=== PATIENT | female | born 1990 | race Caucasian/White ===

== ENCOUNTER → 2019-03-31 | Outpatient (CLI) | payer OTHER, SELFPAY ==
[2018-04-12 14:46] VITALS: BMI 22.4
[2019-03-31 15:59] LABS: Amphetamine Urine VISTA NEGATIVE (<1000 ng/mL); Barbiturate Urine VISTA NEGATIVE (< 200 ng/mL); Benzodiazepine Urine VISTA NEGATIVE (< 200 ng/mL); Cocaine Urine VISTA NEGATIVE (< 300 ng/mL); Ecstacy Urine VISTA NEGATIVE (< 500 ng/mL); Methadone Urine VISTA NEGATIVE (< 300 ng/mL); PCP Urine VISTA NEGATIVE (< 25 ng/mL); THC Urine VISTA NEGATIVE (< 50 ng/mL); Vista UDS pH Range 5
== END | disposition home or self-care (01) ==
PROVIDERS: Visit Provider Family Medicine
DX: Z02.1 Encounter for pre-employment examination (principal)
CPT/HCPCS: 80307

== ENCOUNTER 2019-10-25 17:00 | Emergency (ER) | payer MEDICAID, SELFPAY ==
[2018-04-12 14:46] VITALS: BMI 22.4
[2019-10-25 17:04] VITALS: BP 154/102; PULSE 95; RESP 18; TEMP 36.8; O2SAT 95; BMI 25.0
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
[2019-10-25 17:12] VITALS: O2SAT 95
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
[2019-10-25] MEDS: morphine 8 MG/ML Syringe SC (18:04)
[2019-10-25] MEDS: Ondansetron 4 MG/2 ML Vial IM (18:05)
[2019-10-25 18:39] VITALS: BP 146/100; PULSE 109; RESP 18
== END 2019-10-25 19:13 | disposition home or self-care (01) ==
PROVIDERS: Emergency Provider Emergency Medicine; PCP Family Medicine
DX: S03.2XXA Dislocation of tooth, initial encounter (principal); S09.93XA Unspecified injury of face, initial encounter; M54.5 Low back pain; M25.562 Pain in left knee; F17.200 Nicotine dependence, unspecified, uncomplicated; V03.00XA Pedestrian on foot injured in collision with car, pick-up truck or van in nontraffic accident, initial encounter; Y93.89 Activity, other specified; Y92.89 Other specified places as the place of occurrence of the external cause; Y99.8 Other external cause status
CPT/HCPCS: 72070; 72100; 73564; 96372; 99284; J2405

== ENCOUNTER 2019-12-05 20:50 | Inpatient (IN) | payer MEDICAID, SELFPAY ==
[2019-12-05 20:51] VITALS: BP 171/107; PULSE 111; RESP 16; TEMP 36.4; O2SAT 100; BMI 22.3
[2019-12-05 22:40] VITALS: RESP 16
--- NOTE | 2019-12-05 22:42 | ED.DCSUM_ITS ---
History of Present Illness Chief Complaint: Substance Abuse Informant: Patient Narrative: Patient seeking detox from fentanyl. She snorts it, and does not use it any other way. No IV drug use. She occasionally uses methamphetamine, but fentanyl uses daily and she gets withdrawal when she stops using it. Last use was a couple hours ago so she is feeling fine now, but when she gets withdrawal she gets backache, myalgias, sweats, and anxiety/shaking, nausea. Denies any suicidality. - Past Medical History (1) Depression with anxiety Status: Chronic (2) History of anemia Status: Chronic Past Medical History - Allergies and Home Meds Allergies/Adverse Reactions: Allergies No Known Allergies Allergy (Verified 12/05/19 20:53) Primary Care Physician: Jese Beebe DO [Primary Care Provider] - Smoking Status: Current every day smoker Drugs: - - Fentanyl Review of Systems General: Denies: Chills, Fever, Sweats Eyes: Denies: Visual changes - bilaterally, Diplopia ENT: Reports: - - No loss of taste or smell. Denies: Rhinorrhea, Sore throat Cardiovascular: Denies: Chest pain, Palpitations Respiratory: Denies: Dyspnea, Cough, Dyspnea on exertion Gastrointestinal: Denies: Abdominal pain, Nausea, Vomiting, Diarrhea, Melena, Hematochezia Genitourinary: Denies: Dysuria, Hematuria, Frequency Musculoskeletal: Denies: Myalgias, Back pain, Swelling, Extremity Pain Skin: Denies: Rash, Wounds Neurological: Denies: Headache, Weakness, Numbness Physical Exam Vital Signs/Narrative: Vital Signs Temp Pulse Resp BP Pulse Ox 12/05/19 22:40 16 12/05/19 20:51 97.6 F L 111 H 16 171/107 H 100 General: Well nourished, Well developed, No Acute Distress Head: Normocephalic, Atraumatic Eyes: Perrl, EOMI ENT: Moist mucous membranes, No rhinorrhea Neck: Supple, Nontender Cardiovascular: Regular rate, Regular rhythm, No murmurs, Tachycardia Respiratory: No distress, CTA bilaterally, Chest nontender Abdomen: Soft, Nontender, Nondistended, Normal bowel sounds Back: Nontender, Normal Inspection Extremities: Nontender, No edema. Negative for: Calf Tenderness Skin: Normal color, No rash, No Trauma Neurological: Alert, Oriented x3, Cranial nerves II-XII grossly intact, Normal Strength, Normal Sensation Psychological: Normal affect, Normal Mood Diagnostic/Tx/Re-eval Laboratory Results 12/05/19 12/05/19 12/05/19 22:30 22:30 22:30 WBC 9.1 RBC 4.41 Hgb 13.3 Hct 40.1 MCV 90.9 MCH 30.2 MCHC 33.2 RDW Std Deviation 39.1 RDW Coeff of Billie 11.6 Plt Count 278 MPV 9.7 Immature Gran % (Auto) 0.200 Neut % (Auto) 63.1 Lymph % (Auto) 26.7 [place] % (Auto) 9.0 Eos % (Auto) 0.6 Baso % (Auto) 0.4 Absolute Neuts (auto) 5.7 Absolute Lymphs (auto) 2.42 Nucleated RBC % 0 Sodium 137 Potassium 3.6 Chloride 103 Carbon Dioxide 31.0 Anion Gap 3 L BUN 14 Creatinine 0.95 Estim Creat Clear Calc 74.77 Est GFR (MDRD) Af Amer 88 Est GFR (MDRD) Non-Af 73 BUN/Creatinine Ratio 14.7 Glucose 124 H Calcium 9.5 Total Bilirubin 0.20 AST 16 ALT 22 Alkaline Phosphatase 53 Total Protein 7.5 Albumin 3.9 Globulin 3.6 Albumin/Globulin Ratio 1.1 Serum , Qual NEGATIVE Urine Opiates Screen Urine Methadone Screen Ur Barbiturates Screen Ur Phencyclidine Scrn Ur Amphetamines Screen U Methamphetamin-MDMA U Benzodiazepines Scrn Urine Cocaine Screen U Cannabinoids Screen Ur Drug Screen Comment Ethyl Alcohol 12/05/19 12/05/19 23:05 Unknown WBC RBC Hgb Hct MCV MCH MCHC RDW Std Deviation RDW Coeff of Billie Plt Count MPV Immature Gran % (Auto) Neut % (Auto) Lymph % (Auto) [place] % (Auto) Eos % (Auto) Baso % (Auto) Absolute Neuts (auto) Absolute Lymphs (auto) Nucleated RBC % Sodium Potassium Chloride Carbon Dioxide Anion Gap BUN Creatinine Estim Creat Clear Calc Est GFR (MDRD) Af Amer Est GFR (MDRD) Non-Af BUN/Creatinine Ratio Glucose Calcium Total Bilirubin AST ALT Alkaline Phosphatase Total Protein Albumin Globulin Albumin/Globulin Ratio Serum , Qual Urine Opiates Screen NEGATIVE Urine Methadone Screen NEGATIVE Ur Barbiturates Screen NEGATIVE Ur Phencyclidine Scrn NEGATIVE Ur Amphetamines Screen POSITIVE H U Methamphetamin-MDMA POSITIVE H U Benzodiazepines Scrn NEGATIVE Urine Cocaine Screen NEGATIVE U Cannabinoids Screen NEGATIVE Ur Drug Screen Comment Ethyl Alcohol 3.0 - Medical Decision Making Medically cleared for admission for detox. Patient is stable. ED Disposition - Plan for ED Patient: Disposition: Acute Care Hospital [facility] Diagnosis: Opioid dependence Referrals: Jese Beebe DO [Primary Care Provider] -
[2019-12-05 22:58] LABS: Absolute Lymphocyte Count 2.42 X10^3/uL (0.83-4.51); Absolute Neutrophil Count 5.7 X10^3/uL (2.0-7.7); Basophil# 0.04 X10^3/uL; Basophil% 0.4 % (0-1); Eosinophil# 0.05 X10^3/uL; Eosinophils% 0.6 % (0-5); Hematocrit 40.1 % (37-47); Hemoglobin 13.3 g/dL (12.0-15.0); Lymphocyte # 2.42 X10^3/ul (4.0); Lymphocyte % 26.7 % (19-41); Mean Corp Hgb Conc 33.2 g/dL (32-36); Mean Corpuscular Hgb 30.2 pg (27.0-32.0); Mean Corpuscular Volume 90.9 fL (81-99); Mean Platelet Vol. 9.7 fl (6.2-12.0); Monocyte# 0.82 X10^3/uL; NRBC Flagged by Analyzer 0 % (0-5); Neutrophil # 5.72 X10^3/uL (2.7-7.7); Neutrophil % 63.1 % (47-70); Platelet Count 278 K/mm3 (150-450); RBC Distribution Width CV 11.6 % (11.6-14.6); RBC Distribution Width SD 39.1 fl (35.1-43.9); Red Blood Count 4.41 M/mm3 (4.2-5.4); White Blood Count 9.1 K/mm3 (4.4-11.0)
[2019-12-05 23:13] LABS: Internal QC Validated? YES +Cl - CLEAR BKGD; Pregnancy, Serum, hCG Quali. NEGATIVE Negative
[2019-12-05 23:17] LABS: ALB/GLOB Ratio 1.1 RATIO (0.9-2.4); AST(SGOT) 16 U/L (15-37); Alanine Aminotransfer ALT/SGPT 22 U/L (13-56); Albumin, Serum 3.9 g/dL (3.2-5.0); Alkaline Phosphatase 53 U/L (45-117); Anion Gap 3 (5-15); BUN 14 mg/dL (7-18); BUN/Creat Ratio 14.7 RATIO (10-20); Calcium,Total 9.5 mg/dL (8.5-10.1); Chloride 103 mmol/L (98-107); Creatinine, Serum 0.95 mg/dL (0.55-1.02); EST Glomerular Filtration Rate 73 mL/min (>60); Est Glom Filt Rate - Afr Amer 88 mL/min (>60); Estimated Creatinine Clearance 74.77 ml/min; Globulin 3.6 g/dL (2.2-4.2); Glucose 124 mg/dL (74-106); Potassium 3.6 mmol/L (3.5-5.1); Protein, Total 7.5 g/dL (6.4-8.2); Sodium Level 137 mmol/L (136-145)
[2019-12-05 23:42] LABS: Amphetamine Urine VISTA POSITIVE (<1000 ng/mL); Barbiturate Urine VISTA NEGATIVE (< 200 ng/mL); Benzodiazepine Urine VISTA NEGATIVE (< 200 ng/mL); Cocaine Urine VISTA NEGATIVE (< 300 ng/mL); Ecstacy Urine VISTA POSITIVE (< 500 ng/mL); Methadone Urine VISTA NEGATIVE (< 300 ng/mL); PCP Urine VISTA NEGATIVE (< 25 ng/mL); THC Urine VISTA NEGATIVE (< 50 ng/mL); Vista UDS pH Range 5
[2019-12-06] VITALS (10 sets, daily range): BP systolic 115–147; BP diastolic 51–99; PULSE 66–90; RESP 16–18; TEMP 36.4–37.1; O2SAT 95–100; BMI 24.1; BMI 24.2
--- NOTE | 2019-12-06 00:27 | HP.PCM_ITS ---
Problem List (1) Acute opioid withdrawal Status: Acute (2) Opioid dependence Status: Chronic (3) Depression with anxiety Status: Chronic History of Present Illness Date of Admission: 12/06/19 Chief Complaint: Acute opiate withdrawal requesting medical stabilization. The patient is a 29 year old F with no significant past medical history apart from depression presented to the emergency room requesting admission for acute opioid withdrawal for detoxification. Patient states that she has been snorting fentanyl daily over the last 6 months and also uses intermittent amphetamines. Her last use of fentanyl was 8 hours ago. Before the 6 months, she has been using fentanyl occasionally but not every day. She never went into detox program in the past. Her main complaints at this time as body aches and pains, back pain, mild pain, associated with some restlessness as well as abdominal cramps. She reported abdominal cramps no pain, no diarrhea associated. She d enies fever or chills. In the emergency department, she was afebrile, slight tachycardia, blood pressure was elevated and pulse ox was 100% on room air. Routine blood work was unremarkable. LFT was unremarkable. Serum was negative. Urine drug screen was positive for amphetamines admitted for the means. Blood alcohol level was 3. She is being admitted for acute opioid withdrawal for medical stabilization. Past Medical History Past Medical History (Chronic Problems): Chronic Problems (Last Updated 12/06/19 @ 00:[address] Hoa Braga MD) Opioid dependence (Chronic) Depression with anxiety (Chronic) History of anemia (Chronic) Medical History: Medical History (Last Updated 12/06/19 @ 00:[address] 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 Hoa Braga MD) Grandfather Heart disease Myocardial infarction, Onset Age: 45 Father Drug abuse and dependence Mother Drug abuse and dependence Review of Systems Constitutional: Reports: Malaise. Denies: Anorexia, Chills, Fever, Weakness Eyes: Denies: Blurred vision, Double vision, Drainage, Redness HEENT: Denies: Difficulty Hearing, Ear Pain, Eye Pain, Nasal Congestion, Sore Throat Cardiovascular: Denies: Chest Pain, Chest Pressure, Edema, Heaviness, Palpitations, Syncope Respiratory: Denies: Cough, Hemoptysis, Shortness of Breath, Sputum production, Wheezing Gastrointestinal: Denies: Abdominal Pain, Constipation, Diarrhea, Nausea, Vomiting Genitourinary: Denies: Dysuria, Frequency, Hematuria Musculoskeletal: Reports: Back Pain. Denies: Arm Pain, Foot Pain Skin: Denies: Dryness, Rash Neurological: Denies: Balance problems, Double vision, Change in Speech, Slurred speech, Confusion, Focal weakness, Incoordination, Numbness Psychiatric: Reports: Depression. Denies: Anxiety Endocrine: Denies: Change in Body Habitus, Polydipsia, Polyuria VTE Information - Inpt Only VTE Present on Admission: No VTE Mechan Device Prophylaxis: None VTE Pharm Prophylaxis ordered?: No - Physical Exam Vitals/I&O's: Vital Signs Temp Pulse Resp BP Pulse Ox 97.6 F L 111 H 16 171/107 H 100 12/05/19 20:51 12/05/19 20:51 12/05/19 22:40 12/05/19 20:51 12/05/19 20:51 Oxygen Delivery Method Room Air Weight: 130 lb Body Mass Index (BMI) 22.3 General: Alert, Oriented x3, Cooperative, No apparent distress HEENT: Atraumatic, PERRLA, EOMI, Normocephalic Oral: Moist Mucosa, No Gingival or Mucosal Lesions/ Ulcerations Neck: Supple, No JVD, Negative Carotid Bruits, Trachea Midline, Thyroid Normal Size and Texture Lungs: Clear to auscultation, Normal air movement, No rhonchi, No wheeze, No rales Cardiovascular: Regular rate, Regular Rhythm, Normal S1, Normal S2, PMI Normal Abdomen: Bowel Sounds Present, Soft, Non Tender, Non-Distended, No Hepato- splenomegaly Extremities: No clubbing, No cyanosis, No edema Skin: No rashes, No breakdown Lymphatic: No Cervical, Supraclavicular, or Inguinal Adenopathy Neurological: Cranial nerves II-XII grossly intact, Motor Exam 5/5 strength throughout Psych/Mental Status: Normal Affect, Appropriate, Alert and oriented to time, place, person, mood and affect Laboratory Results 12/05/19 22:30: WBC 9.1, RBC 4.41, Hgb 13.3, Hct 40.1, MCV 90.9, MCH 30.2, MCHC 33.2, RDW Std Deviation 39.1, RDW Coeff of Billie 11.6, Plt Count 278, MPV 9.7, Immature Gran % (Auto) 0.200, Neut % (Auto) 63.1, Lymph % (Auto) 26.7, [place] % (Auto) 9.0, Eos % (Auto) 0.6, Baso % (Auto) 0.4, Absolute Neuts (auto) 5.7, Absolute Lymphs (auto) 2.42, Nucleated RBC % 0 12/05/19 22:30: Sodium 137, Potassium 3.6, Chloride 103, Carbon Dioxide 31.0, Anion Gap 3 L, BUN 14, Creatinine 0.95, Estim Creat Clear Calc 74.77, Est GFR (MDRD) Af Amer 88, Est GFR (MDRD) Non-Af 73, BUN/Creatinine Ratio 14.7, Glucose 124 H, Calcium 9.5, Total Bilirubin 0.20, AST 16, ALT 22, Alkaline Phosphatase 53, Total Protein 7.5, Albumin 3.9, Globulin 3.6, Albumin/Globulin Ratio 1.1 12/05/19 22:30: Serum , Qual NEGATIVE 12/05/19 23:05: Ethyl Alcohol 3.0 12/05/19 : Urine Opiates Screen NEGATIVE, Urine Methadone Screen NEGATIVE, Ur Barbiturates Screen NEGATIVE, Ur Phencyclidine Scrn NEGATIVE, Ur Amphetamines Screen POSITIVE H, U Methamphetamin-MDMA POSITIVE H, U Benzodiazepines Scrn NEGATIVE, Urine Cocaine Screen NEGATIVE, U Cannabinoids Screen NEGATIVE, Ur Drug Screen Comment Assessment/Plan All Active Problems (Last Updated 12/06/19 @ 00:[address] Hoa Braga MD) Acute opioid withdrawal (Acute) This is a 49 years old female patient presented to the emergency room requesting admission for acute opioid withdrawal for medical stabilization. #1 acute opiate withdrawal: Patient has been using snorting fentanyl daily over the last 6 months, she uses amphetamines occasionally. Last use was 8 hours ago. Routine blood work reviewed as well as LFT. Urine drug screen was positive for amphetamines. [facility], initiate opioid withdrawal stabilization protocol with tapering Subutex, as needed Catapres, Bentyl, Neurontin, Vistaril, Imodium, methocarbamol, Zofran and trazodone, consult [facility] program. #2 depression/anxiety: Stable, currently not on medications. #3 tobacco abuse: NicoDerm patch. #4 DVT prophylaxis: Low risk patient, no prophylaxis indicated. This note was generated with Net[employer] dictation software. It may contain incorrect words, spelling, and punctuation that were not noted in checking the note before signing. Inpatient E&M: 59512 Init Hosp L2
[2019-12-06] MEDS: Buprenorphine HCl 2 MG TAB.SUBL SL ×3 (03:32→18:09)
[2019-12-06] MEDS: hydrOXYzine PAM 25 MG Capsule 50 MG PO ×2 (03:32→12:18)
[2019-12-06] MEDS: Methocarbamol 750 MG Tablet 1500 MG PO ×3 (03:33→18:08)
[2019-12-06] MEDS: Dicyclomine 10 MG Capsule 20 MG PO ×3 (03:33→18:08)
[2019-12-06] MEDS: cloNIDine HCl 0.1 MG Tablet PO ×3 (03:34→22:17)
--- NOTE | 2019-12-06 07:26 | PCM.PN.HOSP ---
Patient Problems: Active and Suspected Problems (Last Updated 12/06/19 @ 00:[address] Hoa Braga MD) Acute opioid withdrawal (Acute) Vitals/I&O's: Vital Signs Temp Pulse Resp BP Pulse Ox 97.5 F L 81 18 130/81 H 100 12/06/19 03:38 12/06/19 03:38 12/06/19 03:38 12/06/19 03:38 12/06/19 03:38 Oxygen Delivery Method Room Air Weight: 140 lb 14.006 oz Body Mass Index (BMI) 24.1 Laboratory Results 12/05/19 22:30: WBC 9.1, RBC 4.41, Hgb 13.3, Hct 40.1, MCV 90.9, MCH 30.2, MCHC 33.2, RDW Std Deviation 39.1, RDW Coeff of Billie 11.6, Plt Count 278, MPV 9.7, Immature Gran % (Auto) 0.200, Neut % (Auto) 63.1, Lymph % (Auto) 26.7, [place] % (Auto) 9.0, Eos % (Auto) 0.6, Baso % (Auto) 0.4, Absolute Neuts (auto) 5.7, Absolute Lymphs (auto) 2.42, Nucleated RBC % 0 12/05/19 22:30: Sodium 137, Potassium 3.6, Chloride 103, Carbon Dioxide 31.0, Anion Gap 3 L, BUN 14, Creatinine 0.95, Estim Creat Clear Calc 74.77, Est GFR (MDRD) Af Amer 88, Est GFR (MDRD) Non-Af 73, BUN/Creatinine Ratio 14.7, Glucose 124 H, Calcium 9.5, Total Bilirubin 0.20, AST 16, ALT 22, Alkaline Phosphatase 53, Total Protein 7.5, Albumin 3.9, Globulin 3.6, Albumin/Globulin Ratio 1.1 12/05/19 22:30: Serum , Qual NEGATIVE 12/05/19 23:05: Ethyl Alcohol 3.0 12/05/19 : Urine Opiates Screen NEGATIVE, Urine Methadone Screen NEGATIVE, Ur Barbiturates Screen NEGATIVE, Ur Phencyclidine Scrn NEGATIVE, Ur Amphetamines Screen POSITIVE H, U Methamphetamin-MDMA POSITIVE H, U Benzodiazepines Scrn NEGATIVE, Urine Cocaine Screen NEGATIVE, U Cannabinoids Screen NEGATIVE, Ur Drug Screen Comment Current Medications Acetaminophen (Acetaminophen 500 Mg Tablet) 500 mg PO Q4H PRN PRN PRN Reason: Temp > 100.4 F Buprenorphine HCl (Buprenorphine Hcl 2 Mg Tab.Subl) 4 mg SL Q8H CAMMY; Taper Stop: 12/09/19 03:14 Last Admin: 12/06/19 03:32 Dose: 4 mg Documented by: Clonidine (Clonidine Hcl 0.1 Mg Tablet) 0.1 mg PO Q8H PRN PRN PRN Reason: RESTLESSNESS Last Admin: 12/06/19 03:34 Dose: 0.1 mg Documented by: Dicyclomine HCl (Dicyclomine 10 Mg Capsule) 20 mg PO Q6H PRN PRN PRN Reason: Abdominal Discomfort Last Admin: 12/06/19 03:33 Dose: 20 mg Documented by: Gabapentin (Gabapentin 300 Mg Capsule) 300 mg PO Q8H PRN PRN PRN Reason: moderate to severe anxiety Hydroxyzine Pamoate (Hydroxyzine Zoë 25 Mg Capsule) 50 mg PO Q6H PRN PRN PRN Reason: mild anxiety Last Admin: 12/06/19 03:32 Dose: 50 mg Documented by: Loperamide HCl (Loperamide 2 Mg Capsule) 2 mg PO Q4H PRN PRN PRN Reason: LOOSE STOOLS Methocarbamol (Methocarbamol 750 Mg Tablet) 1,500 mg PO Q6H PRN PRN PRN Reason: MUSCLE SPASM Last Admin: 12/06/19 03:33 Dose: 1,500 mg Documented by: Nicotine (Nicotine 21 Mg Patch) 21 mg TRANSDERM. DAILY CAMMY Last Admin: 12/06/19 01:42 Dose: 21 mg Documented by: Nutritional Formula (Lactose Free) (Ensure Enlive 120 Ml Liquid) 120 ml PO 4X/DAY CAMMY Ondansetron HCl (Ondansetron 8 Mg Tablet) 8 mg PO Q8H PRN PRN PRN Reason: NAUSEA Sodium Chloride (0.9% Saline Lock 10 Ml Syringe) 10 - 40 ml IV UD PRN PRN Reason: SALINE FLUSH Trazodone HCl (Trazodone 100 Mg Tablet) 100 mg PO QHS PRN PRN PRN Reason: INSOMNIA STROKE Vital Signs/Narrative: Vital Signs Temp Pulse Resp BP Pulse Ox 12/06/19 03:38 97.5 F L 81 18 130/81 H 100 Medical Necessity - Tobacco Use Smoking Status: Current every day smoker Tobacco Use: Cigarettes Assessment/Plan All Active Problems (Last Updated 12/06/19 @ 00:[address] Hoa Braga MD) Acute opioid withdrawal (Acute) This is a 49 years old female patient presented to the emergency room requesting admission for acute opioid withdrawal for medical stabilization. #1 acute opiate withdrawal: Patient has been using snorting fentanyl daily over the last 6 months, she uses amphetamines occasionally. She usually has IV fentanyl occasionally. Denies history of HIV or hepatitis C. Last use was 8 hours ago. Liver chemistry within normal limit. Serum negative. U tox positive of amphetamine methamphetamine. Continue opioid withdrawal medication protocol with Subutex with as needed supportive medications. Consult [facility] program for drug rehab. #2 depression/anxiety: Stable, currently not on medications. #3 tobacco abuse: NicoDerm patch. #4 DVT prophylaxis: Low risk patient, no prophylaxis indicated. Laboratory Results 12/05/19 22:30: WBC 9.1, RBC 4.41, Hgb 13.3, Hct 40.1, MCV 90.9, MCH 30.2, MCHC 33.2, RDW Std Deviation 39.1, RDW Coeff of Billie 11.6, Plt Count 278, MPV 9.7, Immature Gran % (Auto) 0.200, Neut % (Auto) 63.1, Lymph % (Auto) 26.7, [place] % (Auto) 9.0, Eos % (Auto) 0.6, Baso % (Auto) 0.4, Absolute Neuts (auto) 5.7, Absolute Lymphs (auto) 2.42, Nucleated RBC % 0 12/05/19 22:30: Sodium 137, Potassium 3.6, Chloride 103, Carbon Dioxide 31.0, Anion Gap 3 L, BUN 14, Creatinine 0.95, Estim Creat Clear Calc 74.77, Est GFR (MDRD) Af Amer 88, Est GFR (MDRD) Non-Af 73, BUN/Creatinine Ratio 14.7, Glucose 124 H, Calcium 9.5, Total Bilirubin 0.20, AST 16, ALT 22, Alkaline Phosphatase 53, Total Protein 7.5, Albumin 3.9, Globulin 3.6, Albumin/Globulin Ratio 1.1 12/05/19 22:30: Serum , Qual NEGATIVE 12/05/19 23:05: Ethyl Alcohol 3.0 12/05/19 : Urine Opiates Screen NEGATIVE, Urine Methadone Screen NEGATIVE, Ur Barbiturates Screen NEGATIVE, Ur Phencyclidine Scrn NEGATIVE, Ur Amphetamines Screen POSITIVE H, U Methamphetamin-MDMA POSITIVE H, U Benzodiazepines Scrn NEGATIVE, Urine Cocaine Screen NEGATIVE, U Cannabinoids Screen NEGATIVE, Ur Drug Screen Comment Inpatient E&M: 00777 Subs Hosp L2
[2019-12-06] MEDS: Gabapentin 300 MG Capsule PO ×2 (09:13→18:08)
[2019-12-06] MEDS: Acetaminophen 500 MG Tablet PO (09:16)
--- NOTE | 2019-12-06 13:22 | CASEMGMT ---
RODOLFO called the pt navigator number at [facility], spoke w/Rola. SW notified her of pt being here, she will come see her here tomorrow. truck jumper made aware. MICKEY Bell
[2019-12-07 03:36] VITALS: BP 94/54; PULSE 60; RESP 18; TEMP 36.6; O2SAT 97
[2019-12-07] MEDS: Buprenorphine HCl 2 MG TAB.SUBL SL ×3 (03:40→18:28)
[2019-12-07 09:52] VITALS: BP 108/62; PULSE 61; RESP 16; TEMP 36.3; O2SAT 98
--- NOTE | 2019-12-07 13:50 | PCM.PN.HOSP ---
Patient Problems: Active and Suspected Problems (Last Updated 12/06/19 @ 00:[address] Hoa Braga MD) Acute opioid withdrawal (Acute) Reason for Visit: Follow-up for acute opioid withdrawal symptoms Objective: Patient is more awake alert. Denies any obvious opioid withdrawal symptoms. Physical exam General: Alert, Oriented x3, Cooperative HEENT: Atraumatic, PERRLA, EOMI, Normocephalic Oral: No Gingival or Mucosal Lesions/ Ulcerations Neck: Supple, No JVD, Negative Carotid Bruits Lungs: Air entry equal in bilateral lung bases. No crepitation/rhonchi Cardiovascular: Regular rate, Regular Rhythm, Normal S1, Normal S2, No murmurs Abdomen: Bowel Sounds Present, Soft, Non Tender, Non-Distended : No renal angle tenderness. No suprapubic tenderness. Extremities: No edema, Capillary Refill Less than 3 Seconds Skin: No rashes, No breakdown Musculoskeletal: No Tenderness to Palpation of Joints or Extremities Neurological: Cranial nerves II-XII grossly intact, Deep Tendon Reflexes 2+/4 and Symmetrical, Neuro grossly intact Psych/Mental Status: Normal Affect, Appropriate. Vitals/I&O's: Vital Signs Temp Pulse Resp BP Pulse Ox 97.4 F L 61 16 108/62 98 12/07/19 09:52 12/07/19 09:52 12/07/19 09:52 12/07/19 09:52 12/07/19 09:52 Oxygen Delivery Method Room Air Weight: 140 lb 14.006 oz Body Mass Index (BMI) 24.1 Intake and Output for Last 24 Hours 12/05/19 12/06/19 12/07/19 23:59 23:59 23:59 Intake Total 600 / 600 300 / 300 Balance 600 / 600 300 / 300 Current Medications Acetaminophen (Acetaminophen 500 Mg Tablet) 500 mg PO Q4H PRN PRN PRN Reason: Pain Score 1-10, or elevated temp of 100.4 or abov Last Admin: 12/06/19 09:16 Dose: 500 mg Documented by: Buprenorphine HCl (Buprenorphine Hcl 2 Mg Tab.Subl) 2 mg SL Q8H CAMMY; Taper Stop: 12/09/19 03:14 Last Admin: 12/07/19 10:56 Dose: 2 mg Documented by: Clonidine (Clonidine Hcl 0.1 Mg Tablet) 0.1 mg PO Q8H PRN PRN PRN Reason: RESTLESSNESS Last Admin: 12/06/19 22:17 Dose: 0.1 mg Documented by: Dicyclomine HCl (Dicyclomine 10 Mg Capsule) 20 mg PO Q6H PRN PRN PRN Reason: Abdominal Discomfort Last Admin: 12/06/19 18:08 Dose: 20 mg Documented by: Gabapentin (Gabapentin 300 Mg Capsule) 300 mg PO Q8H PRN PRN PRN Reason: moderate to severe anxiety Last Admin: 12/06/19 18:08 Dose: 300 mg Documented by: Hydroxyzine Pamoate (Hydroxyzine Zoë 25 Mg Capsule) 50 mg PO Q6H PRN PRN PRN Reason: mild anxiety Last Admin: 12/06/19 12:18 Dose: 50 mg Documented by: Loperamide HCl (Loperamide 2 Mg Capsule) 2 mg PO Q4H PRN PRN PRN Reason: LOOSE STOOLS Methocarbamol (Methocarbamol 750 Mg Tablet) 1,500 mg PO Q6H PRN PRN PRN Reason: MUSCLE SPASM Last Admin: 12/06/19 18:08 Dose: 1,500 mg Documented by: Nicotine (Nicotine 21 Mg Patch) 21 mg TRANSDERM. DAILY CAMMY Last Admin: 12/07/19 09:47 Dose: 21 mg Documented by: Ondansetron HCl (Ondansetron 8 Mg Tablet) 8 mg PO Q8H PRN PRN PRN Reason: NAUSEA Sodium Chloride (0.9% Saline Lock 10 Ml Syringe) 10 - 40 ml IV UD PRN PRN Reason: SALINE FLUSH Trazodone HCl (Trazodone 100 Mg Tablet) 100 mg PO QHS PRN PRN PRN Reason: INSOMNIA STROKE Vital Signs/Narrative: Vital Signs Temp Pulse Resp BP Pulse Ox 12/07/19 09:52 97.4 F L 61 16 108/62 98 Medical Necessity - Tobacco Use Smoking Status: Current every day smoker Tobacco Use: Cigarettes Assessment/Plan All Active Problems (Last Updated 12/06/19 @ 00:[address] Hoa Braga MD) Acute opioid withdrawal (Acute) This is a 49 years old female patient presented to the emergency room requesting admission for acute opioid withdrawal for medical stabilization. #1 acute opiate withdrawal: Patient has been using snorting fentanyl daily over the last 6 months, she uses amphetamines occasionally. She usually has IV fentanyl occasionally. Denies history of HIV or hepatitis C. Last use was 8 hours ago. Liver chemistry within normal limit. Serum negative. U tox positive of amphetamine methamphetamine. Continue opioid withdrawal medication protocol with Subutex with as needed supportive medications. Consult [facility] program for drug rehab. 12/06: Opioid withdrawal symptoms are controlled. Continue the treatment as mentioned above #2 depression/anxiety: Stable, currently not on medications. #3 tobacco abuse: NicoDerm patch. #4 DVT prophylaxis: Low risk patient, no prophylaxis indicated. Laboratory Results 12/05/19 22:30: WBC 9.1, RBC 4.41, Hgb 13.3, Hct 40.1, MCV 90.9, MCH 30.2, MCHC 33.2, RDW Std Deviation 39.1, RDW Coeff of Billie 11.6, Plt Count 278, MPV 9.7, Immature Gran % (Auto) 0.200, Neut % (Auto) 63.1, Lymph % (Auto) 26.7, [place] % (Auto) 9.0, Eos % (Auto) 0.6, Baso % (Auto) 0.4, Absolute Neuts (auto) 5.7, Absolute Lymphs (auto) 2.42, Nucleated RBC % 0 12/05/19 22:30: Sodium 137, Potassium 3.6, Chloride 103, Carbon Dioxide 31.0, Anion Gap 3 L, BUN 14, Creatinine 0.95, Estim Creat Clear Calc 74.77, Est GFR (MDRD) Af Amer 88, Est GFR (MDRD) Non-Af 73, BUN/Creatinine Ratio 14.7, Glucose 124 H, Calcium 9.5, Total Bilirubin 0.20, AST 16, ALT 22, Alkaline Phosphatase 53, Total Protein 7.5, Albumin 3.9, Globulin 3.6, Albumin/Globulin Ratio 1.1 12/05/19 22:30: Serum , Qual NEGATIVE 12/05/19 23:05: Ethyl Alcohol 3.0 12/05/19 : Urine Opiates Screen NEGATIVE, Urine Methadone Screen NEGATIVE, Ur Barbiturates Screen NEGATIVE, Ur Phencyclidine Scrn NEGATIVE, Ur Amphetamines Screen POSITIVE H, U Methamphetamin-MDMA POSITIVE H, U Benzodiazepines Scrn NEGATIVE, Urine Cocaine Screen NEGATIVE, U Cannabinoids Screen NEGATIVE, Ur Drug Screen Comment Inpatient E&M: 67053 Subs Hosp L2
[2019-12-07 16:24] VITALS: BP 113/49; PULSE 60; RESP 14; TEMP 36.8; O2SAT 100
[2019-12-07] MEDS: cloNIDine HCl 0.1 MG Tablet PO (16:28)
[2019-12-07 22:53] VITALS: BP 106/74; PULSE 88; RESP 18; TEMP 36.7; O2SAT 96
[2019-12-07] MEDS: Acetaminophen 500 MG Tablet PO (23:02)
[2019-12-07] MEDS: Methocarbamol 750 MG Tablet 1500 MG PO (23:02)
[2019-12-08] MEDS: Buprenorphine HCl 2 MG TAB.SUBL SL ×2 (04:36→15:44)
[2019-12-08 04:37] VITALS: BP 97/35; PULSE 50; RESP 18; TEMP 36.7; O2SAT 99
[2019-12-08 06:34] VITALS: BP 103/59; PULSE 48
--- NOTE | 2019-12-08 08:59 | PCM.PN.HOSP ---
Patient Problems: Active and Suspected Problems (Last Updated 12/06/19 @ 00:[address] Hoa Braga MD) Acute opioid withdrawal (Acute) Reason for Visit: opiate withdrawal Subjective: anxious about being discharged the same time her boyfriend is as they came at the same time. Vitals/I&O's: Vital Signs Temp Pulse Resp BP Pulse Ox 36.7 C 48 L 18 103/59 L 99 12/08/19 04:37 12/08/19 06:34 12/08/19 04:37 12/08/19 06:34 12/08/19 04:37 Oxygen Delivery Method Room Air Weight: 63.9 kg Body Mass Index (BMI) 24.1 Intake and Output for Last 24 Hours 12/06/19 12/07/19 12/08/19 23:59 23:59 23:59 Intake Total 600 / 600 2000 / 2000 300 / 300 Balance 600 / 600 2000 / 2000 300 / 300 General: Alert, No apparent distress HEENT: Atraumatic, Normocephalic Oral: Moist Mucosa, No Gingival or Mucosal Lesions/ Ulcerations Neck: No Nodes, Thyroid Normal Size and Texture Lungs: Clear to auscultation, Normal air movement, No rhonchi, No wheeze Cardiovascular: Regular rate, Regular Rhythm, Normal S1, Normal S2, No murmurs Abdomen: Bowel Sounds Present, Soft, Non Tender, Non-Distended Psych/Mental Status: Normal Affect, Appropriate Current Medications Acetaminophen (Acetaminophen 500 Mg Tablet) 500 mg PO Q4H PRN PRN PRN Reason: Pain Score 1-10, or elevated temp of 100.4 or abov Last Admin: 12/07/19 23:02 Dose: 500 mg Documented by: Buprenorphine HCl (Buprenorphine Hcl 2 Mg Tab.Subl) 2 mg SL Q12H CAMMY; Taper Stop: 12/09/19 03:14 Last Admin: 12/08/19 04:36 Dose: 2 mg Documented by: Clonidine (Clonidine Hcl 0.1 Mg Tablet) 0.1 mg PO Q8H PRN PRN PRN Reason: RESTLESSNESS Last Admin: 12/07/19 16:28 Dose: 0.1 mg Documented by: Dicyclomine HCl (Dicyclomine 10 Mg Capsule) 20 mg PO Q6H PRN PRN PRN Reason: Abdominal Discomfort Last Admin: 12/06/19 18:08 Dose: 20 mg Documented by: Gabapentin (Gabapentin 300 Mg Capsule) 300 mg PO Q8H PRN PRN PRN Reason: moderate to severe anxiety Last Admin: 12/06/19 18:08 Dose: 300 mg Documented by: Hydroxyzine Pamoate (Hydroxyzine Zoë 25 Mg Capsule) 50 mg PO Q6H PRN PRN PRN Reason: mild anxiety Last Admin: 12/06/19 12:18 Dose: 50 mg Documented by: Loperamide HCl (Loperamide 2 Mg Capsule) 2 mg PO Q4H PRN PRN PRN Reason: LOOSE STOOLS Methocarbamol (Methocarbamol 750 Mg Tablet) 1,500 mg PO Q6H PRN PRN PRN Reason: MUSCLE SPASM Last Admin: 12/07/19 23:02 Dose: 1,500 mg Documented by: Nicotine (Nicotine 21 Mg Patch) 21 mg TRANSDERM. DAILY CAMMY Last Admin: 12/07/19 09:47 Dose: 21 mg Documented by: Ondansetron HCl (Ondansetron 8 Mg Tablet) 8 mg PO Q8H PRN PRN PRN Reason: NAUSEA Sodium Chloride (0.9% Saline Lock 10 Ml Syringe) 10 - 40 ml IV UD PRN PRN Reason: SALINE FLUSH Trazodone HCl (Trazodone 100 Mg Tablet) 100 mg PO QHS PRN PRN PRN Reason: INSOMNIA STROKE Vital Signs/Narrative: Vital Signs Pulse BP 12/08/19 06:34 48 L 103/59 L Medical Necessity - Tobacco Use Smoking Status: Current every day smoker Tobacco Use: Cigarettes Assessment/Plan All Active Problems (Last Updated 12/06/19 @ 00:[address] Hoa Braga MD) Acute opioid withdrawal (Acute) 1. acute opiate withdrawal: on buprenorphine taper through the . continue with other medications to help with other somatic complaints. will dw with CM about coordinating discharge with her boyfriend, who came in at the same time as she did. Tentative discharge on 12/08. Inpatient E&M: 54589 [facility] Hosp L2
[2019-12-08] MEDS: Methocarbamol 750 MG Tablet 1500 MG PO (09:59)
[2019-12-08] MEDS: Gabapentin 300 MG Capsule PO (09:59)
[2019-12-08 10:00] VITALS: BP 120/58; PULSE 58; RESP 18; TEMP 37.2; O2SAT 99
--- NOTE | 2019-12-08 11:17 | CASEMGMT ---
Social Work Note SW received call from Shaina at [facility] stating pt is able to admit directly to [facility] tomorrow. Tere Villanueva EAR NOSE THROAT SURGEON, INSPECTOR RECEIVING
[2019-12-08] MEDS: Acetaminophen 500 MG Tablet PO (15:50)
[2019-12-08] MEDS: hydrOXYzine PAM 25 MG Capsule 50 MG PO (15:51)
--- NOTE | 2019-12-08 16:37 | DCINST_ITS ---
- Discharge Diagnoses Current Active Problems: Current Active and Chronic Problems (Last Updated 12/06/19 @ 00:[address] Hoa Braga MD) Acute opioid withdrawal (Acute) Opioid dependence (Chronic) Depression with anxiety (Chronic) History of anemia (Chronic) You will use the following diet at home:: Regular Allergies/Adverse Reactions: Allergies No Known Allergies Allergy (Verified 12/05/19 20:53) Medications to take at Discharge NK 12/05/19 Primary Care Physician: Jese Beebe DO [Primary Care Provider] - Test Results: Test results from this visit will be discussed in further detail at your follow- up appointment, if applicable. Please Follow Up With: [facility] When: this week Proposed Discharge Date: 12/08/19
--- NOTE | 2019-12-08 16:38 | PCM.DC.SUM ---
Discharge Date and Diagnosis - Problem List Patient Problems: Active and Suspected Problems (Last Updated 12/06/19 @ 00:[address] Hoa Braga MD) Acute opioid withdrawal (Acute) Date of Admission: 12/06/19 Date of Discharge: 12/08/19 - Primary Discharge Diagnosis Acute Problems: Active Problems (Last Updated 12/06/19 @ 00:[address] Hoa Braga MD) Acute opioid withdrawal (Acute) - Secondary Discharge Diagnosis Chronic Problems: Chronic Problems (Last Updated 12/06/19 @ 00:[address] Hoa Braga MD) Opioid dependence (Chronic) Depression with anxiety (Chronic) History of anemia (Chronic) Hospital Course and Treatment Operations: None Procedures: None Summary of Care Provided: The patient is a 29 year old F presents seeking treatment for opiate withdrawal. Patient uses fentanyl daily over the preceding 6 months. Patient was started buprenorphine taper. Patient completed her taper today. Patient will be unable to go to [facility] today but could go the following day. Patient was offered the option to stay in the hospital until she could transition directly to [facility]. She initially says she want to do that then changed her mind saying that she want to go home today. Patient's boyfriend came in at the same time for opiate withdrawal and he left AGAINST MEDICAL ADVICE today. Unclear how much that is playing into her decision. Patient advised to follow-up with [facility] this week. [] Patient Problems: Active and Suspected Problems (Last Updated 12/06/19 @ 00:[address] Hoa Braga MD) Acute opioid withdrawal (Acute) - Physical Exam Vitals/I&O's: Vital Signs Temp Pulse Resp BP Pulse Ox 37.2 C 58 L 18 120/58 L 99 12/08/19 10:00 12/08/19 10:00 12/08/19 10:00 12/08/19 10:00 12/08/19 10:00 Oxygen Delivery Method Room Air Weight: 63.9 kg Body Mass Index (BMI) 24.1 Intake and Output for Last 24 Hours 12/06/19 12/07/19 12/08/19 23:59 23:59 23:59 Intake Total 600 / 600 1999 / 1999 1250 / 1250 Balance 600 / 600 2000 / 2000 1250 / 1250 Current Medications Acetaminophen (Acetaminophen 500 Mg Tablet) 500 mg PO Q4H PRN PRN PRN Reason: Pain Score 1-10, or elevated temp of 100.4 or abov Last Admin: 12/08/19 15:50 Dose: 500 mg Documented by: Buprenorphine HCl (Buprenorphine Hcl 2 Mg Tab.Subl) 2 mg SL Q12H CAMMY; Taper Stop: 12/09/19 03:14 Last Admin: 12/08/19 15:44 Dose: 2 mg Documented by: Clonidine (Clonidine Hcl 0.1 Mg Tablet) 0.1 mg PO Q8H PRN PRN PRN Reason: RESTLESSNESS Last Admin: 12/07/19 16:28 Dose: 0.1 mg Documented by: Dicyclomine HCl (Dicyclomine 10 Mg Capsule) 20 mg PO Q6H PRN PRN PRN Reason: Abdominal Discomfort Last Admin: 12/06/19 18:08 Dose: 20 mg Documented by: Gabapentin (Gabapentin 300 Mg Capsule) 300 mg PO Q8H PRN PRN PRN Reason: moderate to severe anxiety Last Admin: 12/08/19 09:59 Dose: 300 mg Documented by: Hydroxyzine Pamoate (Hydroxyzine Zoë 25 Mg Capsule) 50 mg PO Q6H PRN PRN PRN Reason: mild anxiety Last Admin: 12/08/19 15:51 Dose: 50 mg Documented by: Loperamide HCl (Loperamide 2 Mg Capsule) 2 mg PO Q4H PRN PRN PRN Reason: LOOSE STOOLS Methocarbamol (Methocarbamol 750 Mg Tablet) 1,500 mg PO Q6H PRN PRN PRN Reason: MUSCLE SPASM Last Admin: 12/08/19 09:59 Dose: 1,500 mg Documented by: Nicotine (Nicotine 21 Mg Patch) 21 mg TRANSDERM. DAILY CAMMY Last Admin: 12/08/19 09:59 Dose: 21 mg Documented by: Ondansetron HCl (Ondansetron 8 Mg Tablet) 8 mg PO Q8H PRN PRN PRN Reason: NAUSEA Sodium Chloride (0.9% Saline Lock 10 Ml Syringe) 10 - 40 ml IV UD PRN PRN Reason: SALINE FLUSH Trazodone HCl (Trazodone 100 Mg Tablet) 100 mg PO QHS PRN PRN PRN Reason: INSOMNIA Discharge Diet: No Restrictions Discharge Activity: Return to Normal Activity Home Medications: Medications to take at Discharge NK 12/05/19 Primary Care Physician: Jese Beebe DO [Primary Care Provider] - Please Follow Up With: [facility] When: this week Disposition: Home Minutes spent on discharge:: 26 Patient Condition:: Good Medical Necessity - Tobacco Use Smoking Status: Current every day smoker Tobacco Use: Cigarettes Meaningful Use Info Meaningful Use Diagnoses (Choose all that apply): None applicable Inpatient E&M: 34450 Disch Hosp
[2019-12-08 16:51] VITALS: BP 120/63; PULSE 68; RESP 18; TEMP 36.7; O2SAT 98
== END 2019-12-08 16:50 | disposition home or self-care (01) | DRG 773 ==
LOC: ED 22:44 → MS3 12-06 01:15
PROVIDERS: Admitting Provider Hospitalist; Emergency Provider Emergency Medicine; PCP Family Medicine
DX: F11.23 Opioid dependence with withdrawal (principal); F17.210 Nicotine dependence, cigarettes, uncomplicated; F15.90 Other stimulant use, unspecified, uncomplicated
CPT/HCPCS: 80053; 80307; 80320; 84703; 85025; 99283; 99406; G0480

== ENCOUNTER 2023-02-15 04:02 | Emergency (ER) | payer SELFPAY ==
[2023-02-15 04:02] VITALS: BP 148/87; PULSE 94; RESP 18; TEMP 36.6; O2SAT 100; BMI 23.4
--- NOTE | 2023-02-15 04:11 | EX.ED.DYSGE1 ---
HPI History of Present Illness Chief Complaint: Wound Check Informant: patient Narrative Narrative: Less than 24 hours worth of painful swelling in the right cheek/face. No systemic symptoms. States it started as a pimple, but she states she left work this morning to come to the ER because it became painful and swollen so quickly. She placed a hot compress on it, and was able to get it to drain a small amount of purulent material from the pimple in the center of it. Family member at home recently had MRSA. She states she touches her face a lot. PFSH PFS Medical History Depression with anxiety History of anemia Home Medications mupirocin 2 % topical ointment 1 applic topical BID PRN infection #15 grams 02/15/23 [Rx Last Taken Unknown] sulfamethoxazole 800 mg-trimethoprim 160 mg tablet 1 tab PO BID #14 TABLETS 02/15/23 [Rx Last Taken Unknown] Allergy/AdvReac Type Severity Reaction Status Date / Time No Known Allergies Allergy Verified 02/15/23 04:03 Family History Grandfather Heart disease Myocardial infarction, Onset Age: 45 Father Drug abuse and dependence Mother Drug abuse and dependence Surgical History History of appendectomy Social History Smoking Status: Current every day smoker tobacco type: cigarettes alcohol intake: former substance use type: former substance user Date of last use: 04/11/18 and methamphetamine what type of physical activity do you participate in: aerobics and weight training frequency: 3-4 times per week ROS ROS ED Constitutional Constitutional ED: Denies chills or fever(s) Integumentary Reports as per HPI and rash EXAM Physical Exam Const Vital Signs: 02/15/23 04:02 Temperature 98 F Temperature Source Temporal Pulse Rate 94 Respiratory Rate 18 Blood Pressure 148/87 H Blood Pressure Mean 107 Pulse Ox 100 Oxygen Delivery Method Room Air Positive well nourished and well developed General Appearance ED: well developed and NAD HEENT HEENT Narrative: Small pustule in the center of a cellulitic indurated area right cheek without expressible purulent discharge or fluctuance. There is no extension into the nasal bridge or the eyelid. Dentition nontender. No purulent nasal discharge to suggest sinus involvement. There appears to be a scant amount of drainage on the pustule. Eyes PERRL and EOMs intact bilaterally Neck no lymphadenopathy and supple Neuro oriented x3, CN's II-XII intact bilaterally, no sensory deficits noted and gait normal Motor Exam: strength 5/5 throughout Skin Skin Narrative: Pustule with surrounding cellulitis right cheek see above MDM MDM MDM Narrative Medical decision making narrative: Given the appearance of the area in a relatively short period of time, I would treat as MRSA until proven otherwise. There is nothing to culture right now since I cannot express any new discharge from the area. I prescribed her topical mupirocin as well as Bactrim which we gave her 1 of here. 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 Discharge Plan Triage Chief Complaint: Wound Check ED Provider: David Dean Dx/Rx/DC Orders Clinical Impression: Facial cellulitis Instructions: ED Cellulitis, Facial Prescriptions: New sulfamethoxazole-trimethoprim [sulfamethoxazole-trimethoprim] 800-160 mg tablet 1 tab PO BID Qty: 14 0RF mupirocin 2 % ointment 1 applic topical BID PRN (Reason: infection) Qty: 15 0RF Stand Alone Forms: ED Work / School Excuse Primary Care Provider: Jese Beebe Referrals: Jese Beebe, DO [Primary Care Provider] - 3-5 Days if not improving Activity Restrictions/Additional Instructions: Take oral antibiotic as prescribed until complete AND apply prescription ointment to the affected area as long as there is a small open wound. Disposition Disposition: Home, Self Care
[2023-02-15] MEDS: Smz/Tmp Ds Tablet 1 TABLET PO (04:15)
--- OUTSIDE RECORDS SUMMARY | 2023-02-15 04:25 | XMS RPT_ITS | CCD ---
Author Name Unknown Address [address] [place] [address] Organization [facility] Care Team Providers Care Residential Program Manager Name Role Phone PHYSICIAN, NONE Primary Care Physician Unavailab le Unavailable Primary Care Provider Unavailabl e Medications Current Medications Medication Drug Class(es) Dates Sig (Normalized) Sig (Original) acetaminophen 325 mg oral tablet (1 source) Start: 02-13-2014 Tylenol 325 mg oral tablet Dose : 325 mg = 1 tab(s), Oral, Once, PRN Pain, breakthrough Start Date: 02/13/14 Status: Ordered acetaminophen 325 mg / HYDROcodone bitartrate 5 mg oral tablet (2 sources) Opioid Agonist Start: 11-22-2020 End: 11-25-2020 take 1 tablet by mouth every four hours as needed for pain [place] 325- 5 mg oral tablet Dose = 1 tab(s), Oral, q4hr, PRN as needed for pain, # 12 tab(s), 0 Refill(s), Second degree burn of hand, 67 Start Date: 11/22/20 Stop Date: 11/25/20 Status: Ordered Completed/Discontinued Medications Medication Drug Class(es) Dates Sig (Normalized) Sig (Original) 0.5 ml buprenorphine 200 mg/ml prefilled syringe (2 sources) Partial Opioid Agonist buprenorphine ER (SUBLOCADE) 100 mg/0.5 mL injection Inject 100 mg subcutaneously one time only. Pt receives this monthly 0 Active Problems Active Problems Problem Classification Problem Date Documented Date Episodic/Chronic Buenrostro (1 source) Partial thickness burn of wrist; Translations: [Burn of second degree of unspecified wrist, initial encounter] Onset: 11-22-2020 Episodic Headache; including migraine (1 source) Pain in face 11-13-2015 Episodic Immunizations and screening for infectious disease (1 source) Patient encounter status; Translations: [Encounter for screening for human papillomavirus (HPV)] Episodic Other female genital disorders (1 source) Vaginal irritation; Translations: [Other specified noninflammatory disorders of vagina] Episodic Other nutritional; endocrine; and metabolic disorders (1 source) Abnormal weight loss; Translations: [Abnormal weight loss] Episodic Other screening for suspected conditions (not mental disorders or infectious disease) (1 source) Cancer cervix screening status; Translations: [Encounter for screening for malignant neoplasm of cervix] Episodic Past or Other Problems Problem Classification Problem Date Documented Da te Episodic/Chronic Sexually transmitted infections (not HIV or hepatitis) (2 sources) Gonorrhea; Translations: [Gonococcal infection, unspecified] Onset: 03-04-2012 03-04-2012 Episodic Results Test Name Value Interpretation Reference Range Facil ity Vital Signs Date Time Vital Sign Value Performing Clinician Neri longoria 05-03-2021 13:05-0400 Body height 165.1 cm Mahsa Judah MANAGER MATERIAL.[facility] Work Phone: [facility] 05-03-2021 13:05-0400 Body weight 62.96 kg Mahsa Judah MANAGER MATERIAL.COMPUTER SCIENCE INSTRUCTOR Work Phone: [facility] 05-03-2021 13:05-0400 Diastolic blood pressure 60 mm[Hg] Mahsa [place] MANAGER MATERIAL.COMPUTER SCIENCE INSTRUCTOR Work Phone: [facility] 05-03-2021 13:05-0400 Systolic blood pressure 110 mm[Hg] Mahsa [place] MANAGER MATERIAL.COMPUTER SCIENCE INSTRUCTOR Work Phone: [facility] 11-22-2020 22:11-0400 Body temperature 98.6 [degF] CONNIE NIETO MD [facility] 11-22-2020 22:11-0400 Diastolic blood pressure 102 mm[Hg] CONNIE NIETO MD [facility] 11-22-2020 22:11-0400 Heart rate 76 /min CONNIE NIETO MD [facility] 11-22-2020 22:11-0400 Respiratory rate 18 /min CONNIE NIETO MD [facility] 11-22-2020 22:11-0400 Systolic blood pressure 165 mm[Hg] CONNIE NIETO MD [facility] Encounters Encounter Date Encounter Type Care Provider Facility Start: 05-04-2021 Telephone encounter Cris simpson APRN.CNM Work Phone: OB/Gynecology Procedures Date Procedure Procedure Detail Performing Clinician Start: 02-12-2011 Appendectomy CONNIE VILLARREAL MD Plan of Treatment Date Care Activity Detail Author Start: 05-03-2021 End: 07-03-2021 T3 BLD [facility] Fou ndation Work Phone: Payers Date Payer Category Payer Medicaid [employer] [place] [id number] 2018-Present [phone] [id number] [place] [id number] Medicaid [id number] Social History Date Type Detail Facility Smokes tobacco d aily (finding) [facility] Sex Assigned At Female [facility] History of tobacco use Cigarette Smoker [facility] Work Phone: Start: 05-03-2021 Alcohol intake Current drinke r of alcohol (finding) [facility] Start: 04-23-2013 History SDOH Alcohol Comment Occasionally [facility] Start: 1990 Sex Assigned At Not on file [facility] Start: 04-23-2021 End: 05-03-2021 Exposure to SARS-CoV-2 (event) Not sure [facility] Note 05-04-2021 Telephone Encounter - Damari Pedroza RN - 05/04/2021 1:41 PM EDTTelephone Encounter - Cris Byrd APRN.CNM - 05/04/2021 1:26 PM EDT Note Date & Type Note Facility 05-04-2021 Miscellaneous Notes Attempted to call patient. Unable to leave message, but mailbox is full. Damari Pedroza RN Please notify patient of positive bacterial vaginosis. Rx for Flagyl 500 mg PO BID x 7 days sent to pharmacy. No intercourse or alcohol throughout treatment and up to 24 hours after last dose of medication. Cris Byrd APRN.CNM documented in this encounter [facility] Progress note 05-03-2021 Note Date & Type Note Facility 05-03-2021 Note HNO ID: [id number] Author: Mahsa So APRN.CNP Service: ? Author Type: Nurse Practitioner Type: Progress Notes Filed: 05/03/2021 1:52 PM Note Text: Adan is a 30 year old who presents for an annual gynecologic exam with complaints, vulvar irritation and weight loss. Menses: cycles every 25-30 days and 3-5 days of flow. Contraception: none HPV vaccine: No Last Pap: 04/29/2013 normal HPV: N/A History of abnormal pap: Yes Last mammogram: never Sexually active: not currently History of STDS: None and trichomonas OB History T1 L1 SAB1 IAB2 Ectopic0 Multiple0 Live Births1 Handkerchief Presser History LMP: 04/27/2021, Having periods Age at Menarche: Age at First : Age at Menopause: Handkerchief Presser History Comments: Sexual Activity: Yes; Male Contraception: None PAST MEDICAL HISTORY Diagnosis Date - Abnormal glandular Papanicolaou smear of cervix Abn. Pap smear (cervix) - Depressive disorder, not elsewhere classified - Insertion of IUD 09/29/2008 Mirena PAST SURGICAL HISTORY Procedure Laterality Date - APPENDECTOMY - COLPOSCOPY CERVIX UPPER/ADJACENT VAGINA Colposcopy - IUD INSERTION (MANUFA[employer]ING [employer] TECH[employer]IAN DEPT)_*FL 09/29/2008, 01/25/2015 Leanne FAMILY HISTORY Problem Relation Age of Onset - Alcohol/Drug Mother DRUG - Alcohol/Drug Father DRUG - Heart Maternal Grandfather Pace maker - Asthma Maternal Grandfather - Hypertension Maternal Grandfather SOCIAL HISTORY Social History Tobacco Use - Smoking status: Current Every Day Smoker Packs/day: 0.50 Years: 4.00 Pack years: 2.00 Types: Cigarettes - Smokeless tobacco: Never Used Vaping Use - Vaping Use: Never used Substance Use Topics - Alcohol use: Yes Comment: Occasionally - Drug use: No Types: Marijuana, Crack Cocaine, Heroin Comment: NONE SINCE REVIEW OF SYSTEMS Abdomen: No abdominal pain, nausea, vomiting, diarrhea No bloating, early satiety, indigestion, or increased flatulence. +constipation Bladder: No dysuria, gross hematuria, urinary frequency, urinary urgency, or incontinence. Breast: No breast lumps, nipple d/c, overlying skin changes, redness or skin retraction. Allergies and current medication updated:Yes EXAM: Ht 5' 5 (1.65m) Wt 138 lb 12.8 oz (63.0kg) LMP 04/27/2021 BMI 23.10 kg/(m2). GENERAL: pleasant, female in no apparent distress HEENT: Normocephalic, atraumatic, mucus membranes moist and no lesions NECK: Supple, full range of motion, no adenopathy and thyroid normal DERMATOLOGY: Normal, without lesions, non-icteric and non-hirsute BREAST: soft, non-tender, symmetric, no dominant mass, normal nipple-areolar complex, no lymphadenopathy and no nipple discharge CHEST: Normal inspiratory effort ABDOMEN: soft, non-tender and no masses PELVIC: external genitalia normal, normal Bartholin's glands, urethra, [place]'s glands, no vulvar lesions, no cervical lesions, good vaginal support, physiologic discharge present, normal appearing perineal body and perianal region BIMANUAL: uterus normal size, shape and consistency, no adnexal masses and non-tender RECTOVAGINAL: deferred. NEURO: alert and oriented x3,exam grossly non-focal EXTREMITIES: normal ASSESSMENT/PLAN: 1) Health maintenance: Pap done with HPV. Mammogram starting age 40. Nutrition, exercise and routine health maintenance exams reviewed. Calcium/Vitamin D supplementation information provided. 2) Contraception: none. Contraceptive options reviewed and information provided. 3) STD screening: Declined STD check. 4) Follow up one year or sooner as needed 5) BVC, TSH, T4, T3 ordered Mahsa So APRN.CNP [facility] History of Present illness Narrative 05-03-2021 Mahsa So APRN.CNP - 05/03/2021 1:04 PM EDT Note Date & Type Note Facility 05-03-2021 History of Presen t illness Narrative Adan is a 30 year old who presents for an annual gynecologic exam with complaints, vulvar irritation and weight loss. Menses: cycles every 25-30 days and 3-5 days of flow. Contraception: none HPV vaccine: No Last Pap: 04/29/2013 normal HPV: N/A History of abnormal pap: Yes Last mammogram: never Sexually active: not currently History of STDS: None and trichomonas OB History T1 L1 SAB1 IAB2 Ectopic0 Multiple0 Live Births1 Handkerchief Presser History LMP: 04/27/2021, Having periods Age at Menarche: Age at First : Age at Menopause: Handkerchief Presser History Comments: Sexual Activity: Yes; Male Contraception: None PAST MEDICAL HISTORY Diagnosis Date Abnormal glandular Papanicolaou smear of cervix Abn. 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 09/29/2008, 01/25/2015 Leanne FAMILY HISTORY Problem Relation Age of Onset Alcohol/Drug Mother DRUG Alcohol/Drug Father DRUG Heart Maternal Grandfather Pace maker Asthma Maternal Grandfather Hypertension Maternal Grandfather SOCIAL HISTORY Social History Tobacco Use Smoking status: Current Every Day Smoker Packs/day: 0.50 Years: 4.00 Pack years: 2.00 Types: Cigarettes Smokeless tobacco: Never Used Vaping Use Vaping Use: Never used Substance Use Topics Alcohol use: Yes Comment: Occasionally Drug use: No Types: Marijuana, Crack Cocaine, Heroin Comment: NONE SINCE REVIEW OF SYSTEMS Abdomen: No abdominal pain, nausea, vomiting, diarrhea No bloating, early satiety, indigestion, or increased flatulence. +constipation Bladder: No dysuria, gross hematuria, urinary frequency, urinary urgency, or incontinence. Breast: No breast lumps, nipple d/c, overlying skin changes, redness or skin retraction. Allergies and current medication updated:Yes EXAM: Ht 5' 5 (1.65m) Wt 138 lb 12.8 oz (63.0kg) LMP 04/27/2021 BMI 23.10 kg/(m^2). GENERAL: pleasant, female in no apparent distress HEENT: Normocephalic, atraumatic, mucus membranes moist and no lesions NECK: Supple, full range of motion, no adenopathy and thyroid normal DERMATOLOGY: Normal, without lesions, non-icteric and non-hirsute BREAST: soft, non-tender, symmetric, no dominant mass, normal nipple-areolar complex, no lymphadenopathy and no nipple discharge CHEST: Normal inspiratory effort ABDOMEN: soft, non-tender and no masses PELVIC: external genitalia normal, normal Bartholin's glands, urethra, [place]'s glands, no vulvar lesions, no cervical lesions, good vaginal support, physiologic discharge present, normal appearing perineal body and perianal region BIMANUAL: uterus normal size, shape and consistency, no adnexal masses and non-tender RECTOVAGINAL: deferred. NEURO: alert and oriented x3,exam grossly non-focal EXTREMITIES: normal ASSESSMENT/PLAN: 1) Health maintenance: Pap done with HPV. Mammogram starting age 40. Nutrition, exercise and routine health maintenance exams reviewed. Calcium/Vitamin D supplementation information provided. 2) Contraception: none. Contraceptive options reviewed and information provided. 3) STD screening: Declined STD check. 4) Follow up one year or sooner as needed 5) BVC, TSH, T4, T3 ordered Mahsa So APRN.CNP documented in this encounter [facility] Clinical Note 11-25-2020 Note Date & Type Note Facility 11-25-2020 Note NEW PATIENT HISTORY AND PHYSICAL OUT PATIENT BURN CENTER DATE OF SERVICE: 11/25/2020 ATTENDING PROVIDER: Carlos Nunez PA-C PRIMARY CARE PROVIDER: No Primary Care, MD Magaly Mandatory Information: Required on all patients Date of Burn: 11/22/20 Time of Burn: 2029 Previous Treatment: Burn gel, ice, IM pain medication, bacitracin dressing Place of Treatment: [facility] Place of Injury: Home Intent of Injury: Accident (Cleaning home flat top grill with a gel chemical ladle cleaner and it splashed onto top of hand) Mechanism of Burn: Chemical Site: Right Hand: dorsum - D2 and D3 - second degree: 0.1% TBSA Total TBSA: 0.1% TBSA with 0% third degree burn Cellulitis: No NON-BURN WOUND: None CHIEF COMPLAINT: Burn HISTORY OF PRESENT ILLNESS: Adan is a 29 y.o. female who presents with PMH significant for substance abuse for a chemical/scald burn to her right fingers . The patient is being seen today as a scheduled new patient. She is unaccompanied.. The history is provided by the patient. Adan states that she was cleaning her stove at home. 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 She states that she was using the ladle cleaner with a piece of steel wool and the steel wool must have caught on something splashing the cleaning solution (which was also hot) up onto her hand. She states that she first tried to wipe off the area and then rinse it with cold water. She states that it was really burning so she then tried to cool it with ice and called her boyfriend to take her to the ED. She states that there they took her hand out of the ice and put it in a bacitracin dressing. They also gave her a shot of IM pain medication. She states that she was discharged with instructions to follow up at [facility] and to take Tylenol and motrin prn. She states that she has been a little nauseated but that isn't unusually when she is in pain. She states that she is right handed. REVIEW OF SYSTEMS: Review of Systems Constitutional: Negative for activity change and fever. Respiratory: Negative for cough, shortness of breath and wheezing. Cardiovascular: Negative for chest pain. Gastrointestinal: Positive for nausea. Negative for abdominal pain, constipation and diarrhea. Genitourinary: Negative for difficulty urinating. Skin: Positive for wound. Neurological: Negative for dizziness, weakness and numbness. Psychiatric/Behavioral: Positive for self-injury. History of suicide attempt and substance abuse currently followed by a counselor and substance abuse clinic PAST MEDICAL/SURGICAL HISTORY: Past Medical History: Diagnosis Date Substance abuse patient currently in recovery, Past Surgical History: Procedure Laterality Date APPENDECTOMY 2013 Anesthesia History MEDICATIONS: Current Outpatient Medications: buprenorphine-naloxone (SUBOXONE) 8-2 MG SL tablet, Place under the tongue, Disp: , Rfl: spironolactone (ALDACTONE) 25 MG tablet, , Disp: , Rfl: bacitracin 500 UNIT/GM ointment, Apply to affected area as needed for Wound Care for up to 30 days, Disp: 450 g, Rfl: 0 collagenase (SANTYL) 250 UNIT/GM ointment, Apply to affected area as needed (Dressing Change) for up to 30 days Apply to affected area daily., Disp: 30 g, Rfl: 0 DRUG/FOOD ALLERGIES: No Known Allergies SOCIAL/FAMILY HISTORY: Adan lives with parents and child. Will there be help available to patient for wound care? Yes Special Needs: None Preferred Language: [employer]/Occupation: Works as a MA Social History Tobacco Use Smoking status: Current Every Day Smoker Packs/day: 1.00 Smokeless tobacco: Never Used Substance Use Topics Alcohol use: Not Currently Drug use: Not Currently History reviewed. No pertinent family history. VITAL SIGNS: Vitals: 11/25/20 1319 BP: 121/76 Patient Position: Sitting Pulse: 65 Resp: 16 Temp: 36.1 C (97 F) Weight: 72.4 kg Height: 162.6 cm PHYSICAL EXAM: General: Adan appears healthy, well developed, well nourished, in no acute distress Head/Face: atraumatic and normocephalic Neurologic: alert, oriented appropriately for age Chest/Respiratory: breath sounds are clear to auscultation bilaterally without rales, rhonchi, or wheezes Cardiac: regular rate and rhythm, normal S1 and S2 Abdomen: abdomen is soft, nontender, and nondistended Integumentary: See photo documentation. Pale pink, moist buenrostro to the right dorsal aspect of D2 and D3. No spreading erythema, no streaking, no foul odor or drainage noted. Extremities: 5/5 flex/ext in all extremities, normal ROM of all extremities DIAGNOSIS: Adan is a 29 y.o. female with total TBSA: 0.1% TBSA from Contact- hot liquid, gas, object: hot water and Caustic/Chemical: unknown in distribution documented above. Other important comorbidities or circumstances include: dominant hand, h/o substance abuse PROCEDURES: Local (more content not included)... [facility] Discharge instructions 11-23-2020 Note Date & Type Note Facility 11-23-2020 Hospital Discharg e instructions Patient Education 11/22/2020 22:31:27 Burn, Second-Degree Second-Degree Burn A burn occurs when skin is exposed to too much heat, sun, or harsh chemicals. A second-degree burn (partial-thickness burn) is deeper than a first-degree burn (superficial burn). It usually causes a blister to form. The blister may remain intact and gradually go away on its own. Or it may break open. The goal of treatment is to relieve pain and stop infection while the burn heals. Home care Use pain medicine as directed. If no pain medicine was prescribed, you may use [id number] medicine to control pain. If you have chronic liver or kidney disease, talk with your healthcare provider before using acetaminophen or ibuprofen. Also talk with your provider if you've had a stomach ulcer or GI bleeding. General care On the first day, you may put a cool compress on the wound to ease pain. A cool compress is a small towel soaked in cool water. If you were sent home with the blister intact, don't break the blister. The risk for infection is greater if the blister breaks. If a bandage was applied, change it once a day, unless told otherwise. If the bandage becomes wet or soiled, change it as soon as you can. Sometimes an infection may occur even with proper treatment. Check the burn daily for the signs of infection listed below. Eat more calories and protein until your wound is healed. Wear a hat, sunscreen, and long sleeves while in the sun to protect the skin. Don't pick or scratch at the wound. Use [id number]-[id number] medicines like diphenhydramine for itching. Avoid tight-fitting clothes. To change a bandage: Wash your hands. Take off the old bandage. If the bandage sticks, soak it off under warm running water. Once the bandage is off, gently wash the burn area with mild soap and warm water to remove any cream, ointment, ooze, or scab. You may do this in a sink, under a tub faucet, or in the shower. Rinse off the soap and gently pat dry with a clean towel. Check for signs of infection listed below. Put any prescribed antibiotic cream or ointment on the wound. Cover the burn with nonstick gauze. Then wrap it with the bandage material. Follow-up care Follow up with your healthcare provider, or as advised. When to seek medical advice Call your healthcare provider right away if you have any of these signs of infection: Fever of 100.4 F (38 C) or higher, or as directed by your healthcare provider Pain that gets worse Redness or swelling that gets worse Pus comes from the burn Red streaks in your skin coming from the burn Wound doesn't appear to be healing Nausea or vomiting [phone] [employer]. [address] [place] [address]. All rights reserved. This information is not intended as a substitute for professional medical care. Always follow your healthcare professional's instructions. Follow Up Care 11/22/2020 22:07:55 With:Burn center Address: [phone] When:1-2 days Comments:for first dressing change, call between 8am-4:30pm [facility] History of Past illness Narrative 04-23-2008 Note Date & Type Note Facility documented as of this encounter (statuses as of 05/03/2021) [facility] History of Past illness Narrative 04-23-2008 Note Date & Type Note Facility documented as of this encounter (statuses as of 05/04/2021) [facility] Evaluation + Plan note Note Date & Type Note Facility Evaluation + Plan note No data available for this section [facility] Evaluation note Note Date & Type Note Facility documented in this encounter [facility] Summary Purpose Family History No Family History Records FoundNo Family History Records Found Advance Directives No Advanced Directives Records FoundNo Advanced Directives Records Found Additional Source Comments INFORMATION SOURCE (unrecogn ized section and content) DATE CREATED AUTHOR AUTHOR'S ORGANIZ ATION 05/11/2021 [facility] Source Comments (unrecognize d section and content) In the event this informatio n is protected by the Federal Confidentiality of Alcohol and Drug Abuse Patient Records regulations: The Federal rules restrict any use of the information to criminally investigate or prosecute any alcohol or drug abuse patient.[facility] the event this information is protected by the Federal Confidentiality of Alcohol and Drug Abuse Patient Records regulations: The Federal rules restrict any use of the information to criminally investigate or prosecute any alcohol or drug abuse patient.[facility] Reason for Visit (unrecogniz ed section and content) Reason Comments Results FOR RECORDS PERTAINING TO PATIENTS WHO ARE OR HAVE BEEN ENROLLED IN A CHEMICAL DEPENDENCY/SUBSTANCEABUSE PROGRAM, SOME INFORMATION MAY BE OMITTED. This clinical summary was aggregated from multiple sources. Caution should be exercised in using it in the provision of clinical care. This summary normalizes information from multiple sources, and as a consequence, information in this document may materially change the coding, format and clinical context of patient data. In addition, data may be omitted in some cases. CLINICAL DECISIONS SHOULD BE BASED ON THE PRIMARY CLINICAL RECORDS. [facility] [employer] [facility]. provides no warranty or guarantee of the accuracy or completeness of information in this document.
[2023-02-15 04:28] VITALS: BP 138/60; PULSE 88; RESP 18
== END 2023-02-15 04:28 | disposition home or self-care (01) ==
LOC: ED 04:22
PROVIDERS: Emergency Provider Emergency Medicine; Visit Provider Emergency Medicine
DX: L03.211 Cellulitis of face (principal); F17.210 Nicotine dependence, cigarettes, uncomplicated
CPT/HCPCS: 99282